=== PATIENT | female | born 2000 ===

== ENCOUNTER 2019-08-16 00:15 | Emergency (ER) | payer SELFPAY | END 2019-08-16 01:01 | disposition home or self-care (01) | LOC: ERS 00:15 | DX: R00.2 Palpitations (principal); F41.9 Anxiety disorder, unspecified; F32.9 Major depressive disorder, single episode, unspecified; F90.9 Attention-deficit hyperactivity disorder, unspecified type; F17.290 Nicotine dependence, other tobacco product, uncomplicated | CPT/HCPCS: 93005 ==